=== PATIENT | male | born 1945 | race Caucasian/White ===

== ENCOUNTER 2022-02-01 11:23 | Emergency (ER) | payer OTHER ==
[2022-02-01 11:34] VITALS: BP 159/105; PULSE 95; RESP 18; TEMP 98.6; BMI 33.4
[2022-02-01] MEDS ORDERED: SODIUM CHLORIDE 0.9% 500 ML INFUS.BAG IV ONE (11:34)
[2022-02-01 12:33] LABS: HEMATOCRIT 41.1 % (35.4-49); HEMOGLOBIN 14.6 G/dL (11.7-16.9); MCH 29.9 pg (25.7-33.7); MCHC 35.6 g/dl (32.0-35.9); MEAN PLT VOLUME 8.4 fl (7.5-11.1); PLATELET COUNT 311.6 10^3/uL (134-434); RBC 4.89 10^6/uL (4.00-5.60); RDW 13.5 % (11.9-15.9); WHITE BLOOD COUNT 9.3 10^3/uL (4.0-10.8)
[2022-02-01 12:36] LABS: ALBUMIN 3.8 g/dl (3.4-5.0); BILIRUBIN,TOTAL 0.5 mg/dl (0.2-1); CALCIUM 9.9 mg/dl (8.5-10); CREATININE 1.1 mg/dl (0.55-1.3); TOT PROT 6.6 g/dl (6.4-8.2)
[2022-02-01 12:37] LABS: PLATELET ESTIMATE ADEQUATE
[2022-02-01] MEDS ORDERED: INSULIN REGULAR HUMAN 100 UNITS/ML *VIAL SQ ONE ×2 (13:09→14:44)
[2022-02-01] MEDS ORDERED: INSULIN REGULAR HUMAN 100 UNITS/ML *VIAL ONE ×2 (13:15→14:48)
[2022-02-01 14:24] LABS: VENOUS BASE EXCESS 1.6 mmol/L (-2-2); VENOUS O2 SATURATION 94.4 % (70-80); VENOUS PCO2 44.1 mmHg (38-52); VENOUS PH 7.401 (7.310-7.410)
[2022-02-01] MEDS ORDERED: ACETAMINOPHEN 325 MG TABLET (FP) PO ONE (14:34)
[2022-02-01] MEDS ORDERED: ACETAMINOPHEN 325 MG TABLET (FP) ONE (14:34)
[2022-02-01] MEDS ORDERED: APIXABAN 5 MG TABLET PO ONE (14:38)
[2022-02-01] MEDS ORDERED: amLODIPine BESYLATE 10 MG TABLET (FP) PO ONE (14:48)
[2022-02-01] MEDS ORDERED: amLODIPine BESYLATE 5 MG TABLET (FP) ONE (14:52)
[2022-02-01] MEDS ORDERED: APIXABAN 5 MG TABLET PO SCH (22:00)
== END 2022-02-01 15:26 | disposition home or self-care (01) ==
LOC: FER 11:23
DX: I48.91 Unspecified atrial fibrillation (principal); R73.9 Hyperglycemia, unspecified; I10 Essential (primary) hypertension
CPT/HCPCS: 36415; 71046-TC-FY; 80053; 82010; 82803; 82962; 84443; 84484; 85027; 93005; 99285-25